=== PATIENT | male | born 1995 ===

== ENCOUNTER 2020-06-27 11:33 | Emergency (ER) | payer OTHER ==
[~2020-06-27] VITALS: Ht 177.8 cm; Wt 68.0 kg
[2020-06-27] MEDS ORDERED: AZIT250 PO (14:05)
[2020-06-27] MEDS ORDERED: ALBU90OI INH (14:05)
[2020-06-27] MEDS ORDERED: METPRE4DP PO (14:05)
== END 2020-06-27 15:01 | disposition home or self-care (01) ==
LOC: ER 11:33
DX: J20.9 Acute bronchitis, unspecified (principal); R04.2 Hemoptysis; F17.200 Nicotine dependence, unspecified, uncomplicated; Z79.899 Other long term (current) drug therapy; Z79.52 Long term (current) use of systemic steroids
CPT/HCPCS: 71046; 99283-25